=== PATIENT | male | born 1995 | race Caucasian/White ===

== ENCOUNTER 2024-03-19 07:20 | Outpatient (CLI) | payer OTHER, SELFPAY | END 2024-03-19 07:21 | disposition home or self-care (01) | LOC: NFLDREF 03-21 00:07 | PROVIDERS: PCP Family Medicine; Referring Provider Family Medicine; Visit Provider Registered Nurse | DX: Z31.41 Encounter for fertility testing (principal) | CPT/HCPCS: 89322 ==